=== PATIENT | female | born 1950 | race Caucasian/White ===

== ENCOUNTER 2021-12-04 21:14 | Inpatient (IN) | payer MEDICARE ==
[2021-12-04 22:38] LABS: #Eosinphils 0.1 thou/uL (0.0-0.7); #Lymphocytes 1.8 thou/uL (1.20-3.40); #Monocytes 0.7 thou/uL (0.11-0.59); #Neutrophils 5.8 thou/uL (1.40-6.50); %Basophils 0.1 % (0.0-1.0); %Eosinophils 1.2 % (0.0-10.0); %Lymphocytes 21.4 % (21.0-51.0); %Monocytes 8.5 % (0.0-10.0); %Neutrophils 68.8 % (42.0-75.0); Hemoglobin 13.2 g/dL (12.0-16.0); Mean Corpuscular HGB CONC 34.3 g/dL (32.0-36.0); Mean Corpuscular Hemoglobin 33.6 pg (27.0-31.0); Mean Corpuscular Volume 97.9 fL (78.0-98.0); Mean Platelet Volume 7.2 fL (7.4-10.4); Platelet Count 333 thou/uL (130-400); RBC Distribution Width 11.7 % (11.5-14.5); Red Blood Cell (RBC) Count 3.94 mill/uL (4.20-5.40); White Blood Cell (WBC) Count 8.4 thou/uL (4.8-10.8)
[2021-12-04 22:59] LABS: ALT (SGPT) 17 U/L (8-55); AST (SGOT) 17 U/L (5-34); Albumin 3.6 g/dL (3.4-4.8); Alkaline Phosphatase 53 U/L (40-110); Anion Gap 14 mmol/L (10-20); BUN (Urea Nitrogen) 9 mg/dL (9.8-20.1); Bilirubin, Total 0.3 mg/dL (0.2-1.2); Calc. Creatinine Clearance 0 mL/min (70-130); Calcium 8.7 mg/dL (7.8-10.44); Carbon Dioxide 29 mmol/L (23-31); Chloride 97 mmol/L (98-107); Estimated GFR 96; Globulin 2.7 g/dL (2.4-3.5); Glucose 91 mg/dL (80-115); Lipase 20 U/L (8-78); Potassium 3.4 mmol/L (3.5-5.1); Protein, Total 6.3 g/dL (5.8-8.1); Sodium 137 mmol/L (136-145)
[2021-12-05] MEDS ORDERED: Ondansetron ODT 4 MG TAB SL PRN (01:15)
[2021-12-05] MEDS ORDERED: Ondansetron PF 4 MG/2 ML Vial IVP PRN (01:15)
[2021-12-05 01:34] LABS: Troponin I Less than 0.010 ng/mL (< 0.028)
[2021-12-05] MEDS ORDERED: Nitroglycerin 0.4 MG TAB (25 Tab Bottle) SL PRN (03:07)
[2021-12-05] MEDS ORDERED: SUMAtriptan Succinate 25 MG TAB PO PRN (03:13)
[2021-12-05] MEDS ORDERED: Potassium Chloride 20 MEQ TAB PO SCH (03:15)
[2021-12-05] MEDS ORDERED: Melatonin 3 MG TAB PO PRN (03:17)
[2021-12-05] MEDS ORDERED: Pramipexole Di-HCl 0.25 MG TAB PO PRN (03:18)
[2021-12-05] MEDS ORDERED: Acetaminophen/Codeine 30-300mg Tablet PO PRN (03:19)
[2021-12-05] MEDS: Nicotine 14 MG PATCH TD SCH (03:30)
[2021-12-05 06:00] LABS: #Eosinphils 0.2 thou/uL (0.0-0.7); #Monocytes 0.7 thou/uL (0.11-0.59); %Basophils 0.5 % (0.0-1.0); %Eosinophils 2.6 % (0.0-10.0); %Lymphocytes 25.5 % (21.0-51.0); %Monocytes 8.6 % (0.0-10.0); %Neutrophils 62.8 % (42.0-75.0); Hemoglobin 12.7 g/dL (12.0-16.0); Mean Corpuscular HGB CONC 34.4 g/dL (32.0-36.0); Mean Corpuscular Hemoglobin 33.8 pg (27.0-31.0); Mean Corpuscular Volume 98.4 fL (78.0-98.0); Mean Platelet Volume 7.5 fL (7.4-10.4); Platelet Count 308 thou/uL (130-400); RBC Distribution Width 11.7 % (11.5-14.5); Red Blood Cell (RBC) Count 3.74 mill/uL (4.20-5.40)
[2021-12-05 06:29] LABS: Troponin I Less than 0.010 ng/mL (< 0.028)
[2021-12-05 06:30] LABS: Anion Gap 14 mmol/L (10-20); BUN (Urea Nitrogen) 9 mg/dL (9.8-20.1); Calc. Creatinine Clearance 82 mL/min (70-130); Calcium 8.5 mg/dL (7.8-10.44); Carbon Dioxide 28 mmol/L (23-31); Cardiac Risk 3.2 (Less than 4.5); Chloride 99 mmol/L (98-107); Cholesterol 113 mg/dl (< 200 Desired); Estimated GFR 99; Glucose 99 mg/dL (80-115); HDL Cholesterol 35 mg/dL (>60 Neg Risk); LDL Cholesterol, Calculated 57 mg/dL; Magnesium 1.9 mg/dL (1.6-2.6); Potassium 3.9 mmol/L (3.5-5.1); Sodium 137 mmol/L (136-145); Triglycerides 104 mg/dL (Less than 150)
[2021-12-05] MEDS ORDERED: Enoxaparin Sodium 40 MG/0.4 ML SYRINGE SC SCH (09:00)
[2021-12-05] MEDS: Potassium Chloride 20 MEQ TAB PO SCH ×2 (09:12→21:53)
[2021-12-05] MEDS: Furosemide 40 MG TAB PO SCH ×2 (09:12→21:52)
[2021-12-05] MEDS: Aspirin 81 mg Enteric Coated Tablet PO SCH (09:12)
[2021-12-05] MEDS: Atorvastatin Calcium 20 MG TAB PO SCH (09:12)
[2021-12-05] MEDS: Acetaminophen 325 MG TAB PO PRN ×2 (10:28→21:52)
[2021-12-05] MEDS: Enoxaparin Sodium 60 MG/0.6 ML SYRINGE SC SCH (21:51)
[2021-12-06] MEDS: Nicotine 14 MG PATCH TD SCH (03:49)
[2021-12-06 05:29] LABS: #Eosinphils 0.2 thou/uL (0.0-0.7); #Lymphocytes 2.1 thou/uL (1.20-3.40); #Monocytes 0.5 thou/uL (0.11-0.59); #Neutrophils 2.8 thou/uL (1.40-6.50); %Basophils 0.7 % (0.0-1.0); %Eosinophils 2.9 % (0.0-10.0); %Lymphocytes 37.7 % (21.0-51.0); %Monocytes 8.9 % (0.0-10.0); %Neutrophils 49.8 % (42.0-75.0); Mean Corpuscular HGB CONC 32.9 g/dL (32.0-36.0); Mean Corpuscular Hemoglobin 32.6 pg (27.0-31.0); Platelet Count 301 thou/uL (130-400); RBC Distribution Width 11.9 % (11.5-14.5); White Blood Cell (WBC) Count 5.7 thou/uL (4.8-10.8)
[2021-12-06 05:44] LABS: Anion Gap 17 mmol/L (10-20); BUN (Urea Nitrogen) 8 mg/dL (9.8-20.1); Calc. Creatinine Clearance 79 mL/min (70-130); Calcium 8.9 mg/dL (7.8-10.44); Carbon Dioxide 27 mmol/L (23-31); Chloride 99 mmol/L (98-107); Estimated GFR 99; Glucose 93 mg/dL (80-115); Potassium 3.7 mmol/L (3.5-5.1); Sodium 139 mmol/L (136-145)
[2021-12-06] MEDS ORDERED: Methocarbamol 500 MG TAB PO SCH (09:00)
[2021-12-06] MEDS: Enoxaparin Sodium 60 MG/0.6 ML SYRINGE SC SCH (09:24)
[2021-12-06] MEDS: Potassium Chloride 20 MEQ TAB PO SCH (09:25)
[2021-12-06] MEDS: Furosemide 40 MG TAB PO SCH (09:26)
[2021-12-06] MEDS: Aspirin 81 mg Enteric Coated Tablet PO SCH (09:26)
[2021-12-06] MEDS: Atorvastatin Calcium 20 MG TAB PO SCH (09:26)
[2021-12-06 11:15] VITALS: BMI 19.5
[2021-12-06 11:57] VITALS: BP 112/65; TEMP 97.3
== END 2021-12-06 15:27 | disposition home or self-care (01) | DRG 311 ==
LOC: ERS 21:14 → NEURO 23:32 → OBSVTOIN 12-06 13:37
PROVIDERS: ADMIT Internal Medicine; ATTEND Internal Medicine
DX: I20.0 Unstable angina (principal); I50.32 Chronic diastolic (congestive) heart failure; Z20.822 Contact with and (suspected) exposure to COVID-19; I11.0 Hypertensive heart disease with heart failure; I87.2 Venous insufficiency (chronic) (peripheral); M81.0 Age-related osteoporosis without current pathological fracture; M41.9 Scoliosis, unspecified; K21.9 Gastro-esophageal reflux disease without esophagitis; G89.29 Other chronic pain; F17.210 Nicotine dependence, cigarettes, uncomplicated; E87.6 Hypokalemia; E78.5 Hyperlipidemia, unspecified; Z79.899 Other long term (current) drug therapy; Z79.82 Long term (current) use of aspirin; Z90.710 Acquired absence of both cervix and uterus; Z98.890 Other specified postprocedural states
CPT/HCPCS: 36415; 71045; 80048; 80053; 80061; 83690; 83735; 83880; 84484; 85025; 93005; 94760; 96372; 97139; G0378; J1650; U0003; U0005

== ENCOUNTER 2024-03-13 01:04 | Inpatient (IN) | payer MEDICARE ==
[2024-03-13] MEDS ORDERED: Ondansetron PF 4 MG/2 ML Vial IVP PRN (01:24)
[2024-03-13] MEDS ORDERED: Calcium Carbonate 500 MG ChewTAB PO PRN (01:24)
[2024-03-13] MEDS ORDERED: Acetaminophen 650 MG Suppository PR PRN (01:24)
[2024-03-13] MEDS ORDERED: Ondansetron ODT 4 MG TAB PO PRN (01:24)
[2024-03-13] MEDS ORDERED: Electrolyte Replacement Protocol 1 EACH FS PRN (03:02)
[2024-03-13 03:23] LABS: #Basophils 0.05 10x3/uL (0.0-0.2); %Basophils 0.6 % (0.0-1.0); %Eosinophils 1.2 % (0.0-10.0); %Lymphocytes 21.8 % (21.0-51.0); %Neutrophils 63.9 % (42.0-75.0); Hematocrit 39.8 % (36.0-47.0); Hemoglobin 13.2 g/dL (12.0-16.0); Mean Corpuscular HGB CONC 33.2 g/dL (32.0-36.0); Mean Corpuscular Hemoglobin 31.6 pg (27.0-31.0); Mean Corpuscular Volume 95.2 fL (78.0-98.0); Mean Platelet Volume 10.5 fL (7.4-10.4); Platelet Count 276 10x3/uL (130-400); RBC Distribution Width 12.4 % (11.5-14.5); Red Blood Cell (RBC) Count 4.18 mill/uL (4.20-5.40)
[2024-03-13 03:40] LABS: Anion Gap 11 mmol/L (10-20); BUN (Urea Nitrogen) 7 mg/dL (9.8-20.1); Calc. Creatinine Clearance 89 mL/min (70-130); Calcium 8.7 mg/dL (7.8-10.44); Carbon Dioxide 26 mmol/L (23-31); Chloride 106 mmol/L (98-107); Estimated GFR 98; Glucose 103 mg/dL (83-110); Potassium 3.2 mmol/L (3.5-5.1); Sodium 140 mmol/L (136-145)
[2024-03-13] MEDS: Acetaminophen 325 MG TAB PO SCH (04:29)
[2024-03-13] MEDS: Potassium Chloride 20 MEQ TAB PO SCH (09:04)
[2024-03-13] MEDS: Isosorbide Mononitrate 30 MG ER.TAB PO SCH (09:05)
[2024-03-13] MEDS: Methocarbamol 500 MG TAB PO SCH (09:05)
[2024-03-13] MEDS: Famotidine 20 MG TAB PO SCH (09:05)
[2024-03-13] MEDS: Aspirin 81 mg Enteric Coated Tablet PO SCH (09:05)
[2024-03-13] MEDS: Loratadine 10 MG TAB PO SCH (09:05)
[2024-03-13] MEDS: Famotidine/PF 20 mg/2ml Vial SLOW IVP SCH (09:05)
[2024-03-13] MEDS: Morphine 2 MG/ML VIAL SLOW IVP PRN (15:22)
[2024-03-13] MEDS: ALPRAZolam 0.5 MG TAB PO PRN (20:37)
[2024-03-13] MEDS: Atorvastatin Calcium 20 MG TAB PO SCH (20:37)
[2024-03-13] MEDS: Melatonin 3 MG TAB PO PRN (20:37)
[2024-03-14] MEDS: Acetaminophen/Codeine 30-300mg Tablet PO PRN (00:07)
[2024-03-14] MEDS: Pramipexole Di-HCl 0.25 MG TAB PO PRN (01:10)
[2024-03-14] MEDS: Gabapentin 400 MG CAP PO SCH (01:42)
[2024-03-14] MEDS: Morphine 4 MG/ML VIAL SLOW IVP PRN (03:54)
[2024-03-14] MEDS: Gabapentin 100 MG CAP PO SCH (09:13)
[2024-03-15] MEDS: Morphine 4 MG/ML VIAL SLOW IVP SCH (02:36)
[2024-03-15 03:26] LABS: #Basophils 0.05 10x3/uL (0.0-0.2); %Basophils 0.6 % (0.0-1.0); %Eosinophils 5.8 % (0.0-10.0); %Lymphocytes 28.4 % (21.0-51.0); %Monocytes 8.9 % (0.0-10.0); Hematocrit 40.7 % (36.0-47.0); Hemoglobin 13.4 g/dL (12.0-16.0); Mean Corpuscular HGB CONC 32.9 g/dL (32.0-36.0); Mean Corpuscular Hemoglobin 31.8 pg (27.0-31.0); Mean Corpuscular Volume 96.4 fL (78.0-98.0); Platelet Count 255 10x3/uL (130-400); RBC Distribution Width 12.3 % (11.5-14.5); Red Blood Cell (RBC) Count 4.22 mill/uL (4.20-5.40)
[2024-03-15 04:03] LABS: Anion Gap 13 mmol/L (10-20); BUN (Urea Nitrogen) 12 mg/dL (9.8-20.1); Calc. Creatinine Clearance 80 mL/min (70-130); Calcium 8.7 mg/dL (7.8-10.44); Carbon Dioxide 26 mmol/L (23-31); Chloride 105 mmol/L (98-107); Estimated GFR 95; Glucose 102 mg/dL (83-110); Potassium 4.4 mmol/L (3.5-5.1); Sodium 140 mmol/L (136-145)
[2024-03-15 18:41] VITALS: BMI 22.8
[2024-03-16] MEDS: Morphine 2 MG/ML VIAL SLOW IVP SCH (02:15)
[2024-03-16 05:57] LABS: #Basophils 0.04 10x3/uL (0.0-0.2); %Basophils 0.5 % (0.0-1.0); %Lymphocytes 24.3 % (21.0-51.0); %Monocytes 10.9 % (0.0-10.0); %Neutrophils 57.8 % (42.0-75.0); Hemoglobin 13.2 g/dL (12.0-16.0); Mean Corpuscular Hemoglobin 31.7 pg (27.0-31.0); Mean Corpuscular Volume 95.9 fL (78.0-98.0); Mean Platelet Volume 10.5 fL (7.4-10.4); Platelet Count 263 10x3/uL (130-400); RBC Distribution Width 12.4 % (11.5-14.5); Red Blood Cell (RBC) Count 4.17 mill/uL (4.20-5.40)
[2024-03-16 06:48] LABS: Anion Gap 11 mmol/L (10-20); BUN (Urea Nitrogen) 8 mg/dL (9.8-20.1); Calc. Creatinine Clearance 91 mL/min (70-130); Calcium 8.9 mg/dL (7.8-10.44); Carbon Dioxide 27 mmol/L (23-31); Chloride 106 mmol/L (98-107); Estimated GFR 97; Glucose 102 mg/dL (83-110); Potassium 3.8 mmol/L (3.5-5.1); Sodium 140 mmol/L (136-145)
[2024-03-16] MEDS ORDERED: Acetaminophen 325 MG TAB PO SCH (15:00)
[2024-03-16] MEDS ORDERED: traMADol HCl 50 MG TAB PO SCH (15:00)
[2024-03-16] MEDS ORDERED: Ipratropium/Albuterol 3 ML NEB NEB PRN (15:42)
[2024-03-16] MEDS: Lidocaine 4% Patch TD SCH (16:13)
[2024-03-16 17:49] VITALS: BP 91/52; TEMP 97.6
[2024-03-16] MEDS: Acetaminophen/Codeine 30-300mg Tablet PO PRN (18:21)
[2024-03-16] MEDS ORDERED: Cyanocobalamin (Vitamin B-12) 1,000 MCG TAB PO SCH (21:00)
[2024-03-16] MEDS ORDERED: Cholecalciferol 1,000 UNITS (25 MCG) TAB PO SCH (21:00)
[2024-03-16] MEDS ORDERED: Multivit, Therapeutic 1 TAB PO SCH (21:00)
[2024-03-16] MEDS ORDERED: Senokot S 8.6-50 MG TAB PO SCH (21:00)
[2024-03-17] MEDS ORDERED: Transdermal Patch Removal TOP SCH (03:00)
== END 2024-03-16 18:51 | DRG 552 ==
LOC: 2SE 01:04 → OBSVTOIN 14:19 → T4-B 03-15 18:33
PROVIDERS: ADMIT Student in an Organized Health Care Education/Training Program; ATTEND Internal Medicine
DX: M47.812 Spondylosis without myelopathy or radiculopathy, cervical region (principal); I50.32 Chronic diastolic (congestive) heart failure; M48.02 Spinal stenosis, cervical region; G31.9 Degenerative disease of nervous system, unspecified; I49.1 Atrial premature depolarization; I37.1 Nonrheumatic pulmonary valve insufficiency; I07.1 Rheumatic tricuspid insufficiency; E87.6 Hypokalemia; E78.5 Hyperlipidemia, unspecified; G25.81 Restless legs syndrome; G89.4 Chronic pain syndrome; F41.9 Anxiety disorder, unspecified; I11.0 Hypertensive heart disease with heart failure; Z79.899 Other long term (current) drug therapy; Z90.710 Acquired absence of both cervix and uterus
CPT/HCPCS: 36415; 36416; 70450; 72125; 80048; 83735; 85025; 93005; 93010; 93306; G0378; J2272